=== PATIENT | female | born 1975 | race Caucasian/White ===

== ENCOUNTER → 2018-11-15 08:00 | Outpatient (CLI) | payer OTHER, SELFPAY ==
[2018-11-15 10:46] LABS: Cortisol AM (Before 10AM) 7.42 ug/dL (4.46-22.7)
== END ==
PROVIDERS: Visit Provider Physician Assistant
DX: R22.1 Localized swelling, mass and lump, neck (principal)
CPT/HCPCS: 36415; 82533